=== PATIENT | male | born 1970 | race Caucasian/White ===

== ENCOUNTER 2018-03-24 15:14 | Emergency (ER) | payer MEDICAID ==
[2018-03-24 15:14] VITALS: BMI 30.7
[2018-03-24 15:24] VITALS: BP 138/81; PULSE 79; RESP 16; TEMP 98.1; O2SAT 98
--- NOTE | 2018-03-24 16:03 | C.PDOC ---
History Of Present Illness The patient is a 47 year old male who states he slipped, fell down steps and landed onto his left knee yesterday. He presents to the ED for evaluation of pain and swelling to the left knee that has progressed since the incident. Patient states he is ambulatory, but with a limp. He denies head injury, LOC, extremity numbness/weakness, or any other injuries at this time. Time Seen by Provider: 03/24/18 15:18 Chief Complaint (Nursing): Lower Extremity Problem/Injury History Per: Patient History/Exam Limitations: no limitations Onset/Duration Of Symptoms: Hrs Current Symptoms Are (Timing): Still Present Additional History Per: Patient - Knee Description Of Injury: Fell (left) - Ankle/Foot Description Of Injury: Fell Past Medical History Reviewed: Historical Data, Nursing Documentation, Vital Signs Vital Signs: Last Vital Signs Temp 98.1 F 03/24/18 15:20 Pulse 79 03/24/18 15:20 Resp 16 03/24/18 15:20 BP 138/81 03/24/18 15:20 Pulse Ox 98 03/24/18 15:20 - Medical History PMH: No Chronic Diseases Surgical History: No Surg Hx Denies: Pacemaker - [facility] Procedures ESOPHAGOGASTRODUODENOSCOPY [EGD] W/CLOSED BIOPSY (11/02/14) Family History: States: Unknown Family Hx - Social History Hx Alcohol Use: No Hx Substance Use: No Review Of Systems Musculoskeletal: Positive for: Other (left knee pain and swelling ) Neurological: Negative for: Weakness, Numbness, Other (head injury, LOC ) Physical Exam - Physical Exam Appears: Non-toxic, No Acute Distress Skin: Normal Color, Warm, Dry, No Ecchymosis (left knee), No Other (lacerations or abrasions to left knee ) Head: Atraumatic, Normacephalic Eye(s): bilateral: Normal Inspection Extremity: Tenderness (over the medial aspect of left knee ), Capillary Refill (less than 2 seconds ), Swelling (over medial aspect of left knee ), Other (range of motion of left knee is somewhat hindered secondary to pain. Flexion and extension of left knee is intact ) Neurological/Psych: Oriented x3, Normal Speech, Normal Cognition, Normal Sensation Gait: Other (patient able to bear weight on left lower extremity with some pain) ED Course And Treatment O2 Sat by Pulse Oximetry: 98 (on RA) Pulse Ox Interpretation: Normal - Other Rad left knee XR X-Ray: Viewed By Me, Read By Radiologist Interpretation: Date of service: 03/24/2018. PROCEDURE: Left Knee Radiographs. HISTORY: Pain. COMPARISON: None. FINDINGS: BONES: There is a lucency seen through the periphery of the patella, posterior articular surface, in the lateral view. Question is raised of patellar fracture. Correlate clinically. Consider further radiographic evaluation with sunrise view. JOINTS: Normal. No osteoarthritis. JOINT EFFUSION: Small effusion in the suprapatellar bursa. OTHER FINDINGS: None. IMPRESSION: Question of nondisplaced patellar fracture. Further radiographic evaluation should be considered. Small effusion. Medical Decision Making Medical Decision Making: Plan: * toradol IM * left knee XR * reassess and disposition Progress: Toradol IM given. Left knee XR ordered and reviewed. Discussed result with patient- possible nondisplaced patellar fracture. Patient placed in knee immobilizer and advised to follow up with orthopedics, referral given. Disposition - Disposition Referrals: Stephanie Banuelos MD [Staff Provider] - Disposition: HOME/ ROUTINE Disposition Time: 17:11 Condition: GOOD Instructions: Patella Fracture (DC) Forms: Hover 3D (Guatemalan) Print Language: CYPRIOT - Clinical Impression Clinical Impression: Left knee injury, Nondisplaced fracture of left patella - Scribe Statement The provider has reviewed the documentation as recorded by the Scribe (Jennifer Abdullahi) Provider Attestation: All medical record entries made by the Scribe were at my direction and personally dictated by me. I have reviewed the chart and agree that the record accurately reflects my personal performance of the history, physical exam, medical decision making, and the department course for this patient. I have also personally directed, reviewed, and agree with the discharge instructions and disposition.
--- NOTE | 2018-03-24 16:48 | RAD ---
Date of service: 03/24/2018 PROCEDURE: Left Knee Radiographs. HISTORY: Pain. COMPARISON: None. FINDINGS: BONES: There is a lucency seen through the periphery of the patella, posterior articular surface, in the lateral view. Question is raised of patellar fracture. Correlate clinically. Consider further radiographic evaluation with sunrise view. JOINTS: Normal. No osteoarthritis. JOINT EFFUSION: Small effusion in the suprapatellar bursa OTHER FINDINGS: None. IMPRESSION: Question of nondisplaced patellar fracture. Further radiographic evaluation should be considered. Small effusion.
== END 2018-03-24 17:30 | disposition home or self-care (01) ==
LOC: C.ER 15:14
DX: S82.002A Unspecified fracture of left patella, initial encounter for closed fracture (principal); W10.9XXA Fall (on) (from) unspecified stairs and steps, initial encounter
CPT/HCPCS: 73562; 96372; 99285; J1885